=== PATIENT | male | born 1960 | race Two or more races ===

== ENCOUNTER 2021-07-12 14:07 | Emergency (ER) | payer MEDICAID, OTHER, SELFPAY ==
--- NOTE | ~2021-07-12 | XR_ITS ---
EXAMINATION: XR ANKLE, RIGHT CLINICAL INFORMATION: Injury. COMPARISON: None TECHNIQUE: AP, lateral, and mortise views of the right ankle. FINDINGS: Trimalleolar fracture of the ankle with dislocation. The talus is dislocated laterally. There is an oblique fracture through the lateral malleolus at the synchondrosis. Transverse fracture through the medial malleolus. Vertically oriented fracture through the posterior malleolus. Fracture fragments are slightly displaced. XR/XR ankle RT min 3V IMPRESSION: Trimalleolar fracture of ankle with lateral dislocation of talus.
--- NOTE | 2021-07-12 14:11 | ED_ITS ---
HPI - Fall General Chief Complaint: Extremity Injury, Lower Stated Complaint: FALL DOWN 1 STAIR, ANKLE PAIN Time Seen by Provider: 07/12/21 14:11 Source: patient and EMS Mode of arrival: EMS Limitations: no limitations History of Present Illness HPI Narrative: 61 y/o male with history of HTN, obesity presents to the ER with right ankle pain and swelling after he missed 2 steps when walking down some stairs prior to arrival. He states his ankle went inward and he saw his foot go 90 degrees outward. He is certain he broke his foot. His pain is 5/10 and is located on both the medial and lateral aspects of the ankle. He can't move his foot because of the pain. Unable to ambulate. EMS was called and he was brought to the ER for further evaluation. MD complaint: fall Onset (ago): minute(s) Fall from: standing Fall witnessed: no Place fall occurred: home Loss of consciousness: none Prolonged down time: no Symptoms prior to fall: none Context: tripped/slipped Location of injury - extremities: right: ankle Severity: moderate Severity scale (1-10): 5 Quality: sharp and aching Associated symptoms (after fall): unable to walk Related Data Previous Rx's Medication Instructions Recorded ibuprofen 600 mg tablet 600 mg PO Q8H PRN #20 tab 07/12/21 oxycodone 5 mg tablet 5 mg PO Q6H PRN #10 tab 07/12/21 Allergies Allergy/AdvReac Type Severity Reaction Status Date / Time No Known Allergies Allergy Verified 07/12/21 14:22 Review of Systems Review of Systems: Constitutional: No Fever, No Chills ENT/Mouth: No sore throat, No Rhinorrhea Cardiovascular: No Chest Pain, No SOB, No Orthopnea, No Edema Respiratory: No Cough, No Sputum, No Wheezing, No dyspnea Gastrointestinal: No Nausea, No Vomiting, No Diarrhea, No abdominal Pain Genitourinary: No Dysuria, No Urinary Frequency, No Hematuria Musculoskeletal:+ joint pain, No Myalgias Skin: No Skin Lesions, No rash Neuro: No Weakness, No Numbness, No Dizziness, No Headache Psych: No Anxiety/Panic, No Depression Heme/Lymph: No Bruising, No Lymphadenopathy PMFSH Past Medical History Medical History (Updated 07/12/21 @ 16:28 by CHARISSE Garcia) Asthma HTN (hypertension) Kidney stone Post-nasal drip Social History Social History Advance Directives: No Advance Directives Information Provided: No Physical Exam Vital Signs: Vital Signs: Last Vital Signs Temp 98.2 F 07/12/21 14:12 Pulse 85 07/12/21 14:12 Resp 16 07/12/21 14:12 BP 136/87 07/12/21 14:12 Pulse Ox 96 07/12/21 14:12 BMI result Body Mass Index 35.3 Appearance: Alert. Oriented X3. No acute distress. HEENT: normal inspection CVS: Normal heart rate and rhythm. Pulses normal. Respiratory: No respiratory distress. Skin: Skin warm and dry. Normal skin color. Normal skin turgor. No rashes. Extremities: significant soft tissue swelling of the medial and lateral aspects of the right ankle. no ecchymosis. tenderness throughout with limited ROM due to pain. cap refill <3 sec, 2+ DP pulses. normal right ankel and right hip. Neuro: Oriented X 3. No motor deficit. No sensory deficit. gait not tested due to pain Course Course Course Narrative: 7-year-old male presents the ER with right ankle pain status post fall down 2 stairs just prior to arrival. He has significant soft tissue swelling without any skin tenting. Suspect acute fracture. X-rays pending. Reevaluation(s) Reevaluation #1: X-ray showing a trimalleolar fracture. Dr. Klein was consulted who is recommending splinting with a gentle don technique - knee in flexion, external rotation of the lower leg and simultaneous foot abduction and supination. This was performed successfully with patient sitting at the edge of the bed. He tolerated well. He states the ankle feels ?normal. ?. His pain is a 4/10 after dose of oxycodone. He was given crutches and crutch training. He was instructed nonweightbearing status, and he needs to be by orthopedics next week. He is declining need for acute rehab. Stable for discharge home. Consultations Consultation #1: Dr. Klein - Orthopedics Procedures Orthopedic Splinting/Casting Injury #1: Side: right Lower Extremity Injury Location: ankle Lower Extremity Immobilizer: posterior splint and stirrup splint Other Orthopedic Equipment: crutches Discharge Plan Discharge Clinical Impression: Closed trimalleolar fracture of ankle Patient Disposition: Home, Self-Care Instructions: Ankle Fracture (DC) Additional Instructions: Your x-ray today showed you broke both major ankle bones. A splint was placed for temporary immobilization until the swelling goes down. Elevate your foot whenever possible. You cannot bear any weight on your right foot. You must follow up with the equipment application specialist early next week. Name and number below - call tomorrow to arrange an appointment. Take the prescribed medications as needed for pain. Also recommend Tylenol 1,000 mg every 6 hours. Prescriptions: New oxycodone 5 mg tablet 5 mg PO Q6H PRN (Reason: pain) Qty: 10 0RF ibuprofen 600 mg tablet 600 mg PO Q8H PRN (Reason: pain) Qty: 20 0RF Referrals: Tee Klein MD [Physician] - 2 days (trimalleolar ankle fracture)
[2021-07-12 14:12] VITALS: BP 136/87; PULSE 85; RESP 16; TEMP 36.8; O2SAT 96; BMI 35.3
[2021-07-12 14:19] VITALS: BP 140/74; PULSE 96; O2SAT 96
[2021-07-12] MEDS: oxyCODONE HCl Immed Release 5 MG TABLET PO (14:33)
== END 2021-07-12 18:12 | disposition home or self-care (01) ==
PROVIDERS: Emergency Provider Emergency Medicine
DX: S82.851A Displaced trimalleolar fracture of right lower leg, initial encounter for closed fracture (principal); W10.8XXA Fall (on) (from) other stairs and steps, initial encounter; Y93.9 Activity, unspecified; Y92.9 Unspecified place or not applicable; Y99.9 Unspecified external cause status
CPT/HCPCS: 73610; 99283; 99284

== ENCOUNTER → 2021-07-16 14:41 | Outpatient (BNVA) | payer MEDICAID, OTHER, SELFPAY | PROVIDERS: Visit Provider Physician Assistant | DX: S82.851A Displaced trimalleolar fracture of right lower leg, initial encounter for closed fracture (principal) | CPT/HCPCS: 99202 ==

== ENCOUNTER 2021-07-18 10:00 | Day surgery (SDC) | payer MEDICAID, OTHER, SELFPAY ==
--- NOTE | 2021-07-17 09:01 | P.CONAN_ITS ---
Documented by User: Veronica Meza NP 07/17/21 09:01 HPI - Anesthesia Eval Consult details Narrative: 61yo M for Right Ankle Fracture ORIF FOR[facility]LY [facility], 1928–1983 Past Medical History Medical History Asthma HTN (hypertension) Kidney stone Post-nasal drip Social History Social History Patient Tobacco Use Status: Former Tobacco user Quit Date: 10 YEARS AGO Use of substances other than those prescribed or required for medical reasons: No Are you DNR?: No Advance Directives: No Advance Directives Information Provided: Yes Recently lost weight without trying: No Meds Allergies Allergy/AdvReac Type Severity Reaction Status Date / Time No Known Allergies Allergy Verified 07/16/21 14:46 Home Medications Medication Instructions Recorded Confirmed Last Taken Type amlodipine 5 mg tablet 5 mg PO DAILY 07/16/21 07/16/21 Unknown History cetirizine 10 mg tablet (All Day 10 mg PO DAILY PRN 07/16/21 07/16/21 Unknown History Allergy (cetirizine)) tamsulosin 0.4 mg capsule (Flomax) 0.4 mg PO DAILY 07/16/21 07/16/21 07/17/21 History Exam Exam Date and Time: July 17, [id number] Assessment and Plan Assessment Anesthesia Assessment: Chart Reviewed Documented by User: Puma Aguirre MD 07/18/21 17:01 [facility], [facility] Past Medical History Medical History Asthma HTN (hypertension) Kidney stone Post-nasal drip Functional capacity: independent ambulation Family History Family history of problems with anesthesia: No Surgical History History of Problems with Anesthesia: No Social History Social History Patient Tobacco Use Status: Former Tobacco user Quit Date: 10 YEARS AGO Use of substances other than those prescribed or required for medical reasons: No Are you DNR?: No Advance Directives: No Advance Directives Information Provided: Yes Recently lost weight without trying: No Meds Allergies Allergy/AdvReac Type Severity Reaction Status Date / Time No Known Allergies Allergy Verified 07/16/21 14:46 Home Medications Medication Instructions Recorded Confirmed Last Taken Type amlodipine 5 mg tablet 5 mg PO DAILY 07/16/21 07/16/21 Unknown History cetirizine 10 mg tablet (All Day 10 mg PO DAILY PRN 07/16/21 07/16/21 Unknown History Allergy (cetirizine)) tamsulosin 0.4 mg capsule (Flomax) 0.4 mg PO DAILY 07/16/21 07/16/21 07/17/21 History Exam Airway Mallampati Class: III TM Dist: >3cm Neck ROM: Full Denture: Upper Loose/Missing/Broken Teeth: Yes Heart: rrr Lungs: bl breath sounds Assessment and Plan Assessment Anesthesia Assessment: Anesthesia Plan Discussed Final Anesthetic Review Family History of Problems with Anesthesia: No History of Problems with Anesthesia: No NPO: Yes ASA Class: III Final Preanesthetic Review: Meds/Allgs Chart Reviewed, Consent Obtained/Reviewed and Anes Risks/Benef Reviewed Patient Risk: Intermediate Procedure Risk: Intermediate Anesthetic Plan Anesthetic Plan: GA and Regional Block Disposition: Standard PACU
[2021-07-18] VITALS (11 sets, daily range): BP systolic 110–154; BP diastolic 68–88; PULSE 77–97; RESP 12–18; TEMP 36.1–36.8; O2SAT 92–99; BMI 35.2
--- NOTE | ~2021-07-18 | FL_ITS ---
EXAMINATION: Intraoperative fluoroscopy CLINICAL INFORMATION: Right ankle fracture COMPARISON: Right ankle x-rays 07/12/2021 TECHNIQUE: Intraoperative fluoroscopy was provided for use by Dr. Klein. A total of 3 images were saved to PACS. A radiologist was not present during imaging. Today's dictation is only for administrative purposes to document intraoperative fluoroscopic usage. TOTAL FLUOROSCOPIC TIME: 0.3 minutes FL/FL guidance in OR FINDINGS~\^^ Intraoperative fluoroscopy provided for use by Dr. Klein. Please see operative note for detailed findings.
[2021-07-18] MEDS: Lactated Ringers 1,000 ML 100 ML IVCONT (11:06)
--- NOTE | 2021-07-18 11:58 | MHC.SHP ---
Pre-Procedural Eval Section A Date of Service: 07/18/21 The patient is an INPATIENT: No Changes since office visit: Yes Patient answered all questions; No Cold of Flu in the past 2 weeks, No New Medical Problems and No Changes in Medication The History & Physical has been completed within 30 days and I have reviewed it.: Yes Section B Chief Complaint: Displaced bimalleolar fracture of right lower leg, Allergies: Allergies Allergy/AdvReac Type Severity Reaction Status Date / Time No Known Allergies Allergy Verified 07/16/21 14:46 Plan I have reviewed the history and physical and performed a pertinent physical examination on my patient. No changes have occurred unless specified.
--- NOTE | 2021-07-18 13:23 | PM.OP ---
Brief Operative Note Date of Service: 07/18/21 Pre-op diagnosis: right bimalleolar ankle fracture Post-op diagnosis: same Procedure: ORIF right bimall Implants: [place] lateral locking plate and 2 medial 4.0 partially threaded cancellous screws Surgeon: Tee Klein MD Anesthesia: GETA and regional Was an Sponsorship Manager used for this Procedure?: Yes Sponsorship Manager: Vianney Sanches Estimated blood loss (mL): 25 IV fluids (mL): 1,000 Pathology: none sent Condition: stable Disposition: PACU
--- NOTE | 2021-07-18 13:28 | W.PM.OPN ---
Operative Note Operative Note Date of Service: 07/18/21 Narrative: Pre-op diagnosis: right bimalleolar ankle fracture Post-op diagnosis: same Procedure: ORIF right bimall Implants: [place] lateral locking plate and 2 medial 4.0 partially threaded cancellous screws Surgeon: Tee Klein MD Anesthesia: GETA and regional Was an Integrated Campaign Manager used for this Procedure?: Yes Integrated Campaign Manager: Vianney Sanches Estimated blood loss (mL): 25 IV fluids (mL): 1,000 Pathology: none sent Condition: stable Disposition: PACU Procedure in detail: Patient was brought to the operating room and placed supine on the operative table. All bony prominences were well padded and a time-out was called to identify proper site proper procedure proper surgeon. IV antibiotics per weight were administered. I began by exsanguinating limb is slightly tourniquet to 300 mm Hg. I then made a standard posterolateral incision over the fibula. Full-thickness flaps were taken down to the fibular shaft and distal fibula. The fracture was identified and cleaned with a combination of curette, rongeur and irrigation. A lobster claw was used to provisionally reduce the fracture and a lag screw was placed from A-P using standard AO techniqu. A 6 hole distal fibular locking plate was then applied using standard AO technique. Biplanar fluoroscopy was used to confirm hardware position and fracture reduction. Once I was satisfied that both of these were acceptable I irrigated copiously and turned my attention to the medial side. The transverse medial malleolar fracture was identified after skin incision. Full-thickness skin flaps were developed and, With a sharp tenaculum, the fracture was reduced. 2 threaded K-wires were then placed from distal to proximal and perpendicular to the fracture. Biplanar fluoroscopy was used to confirm positioning and then they were overdrilled and 2 40 mm 4.0 partially-threaded cannulated cancellous screws were placed across the fracture. I was satisfied with the position and the fracture reduction based on biplanar fluoroscopy. This syndesmosis was tested using external rotation test and was found to be stable. Therefore all instrumentation was removed and copious irrigation was performed. Absorbable suture and stacie were used for closure and the patient was placed into sterile dressings and a well-padded posterior splint. Tourniquet was let down and the patient was extubated brought to recovery room in stable condition there were no known complications.
[2021-07-18] MEDS: HYDROmorphone HCl 0.5 MG/0.5 ML SYRINGE 0.25 MG IVPUSH ×3 (13:39→14:18)
[2021-07-18] MEDS: HYDROmorphone HCl 0.5 MG/0.5 ML SYRINGE IVPUSH (13:55)
[2021-07-18] MEDS: oxyCODONE HCl Immed Release 5 MG TABLET PO (14:02)
== END 2021-07-18 16:55 | disposition home or self-care (01) ==
LOC: HO.SSS 10:01
PROVIDERS: Visit Provider Orthopaedic Surgery
PROC: (CPT 27814; principal; 2021-07-18 12:20)
DX: S82.841A Displaced bimalleolar fracture of right lower leg, initial encounter for closed fracture (principal); W10.8XXA Fall (on) (from) other stairs and steps, initial encounter; Y93.01 Activity, walking, marching and hiking; Y92.9 Unspecified place or not applicable; Y99.8 Other external cause status; I10 Essential (primary) hypertension; J45.909 Unspecified asthma, uncomplicated; Z79.899 Other long term (current) drug therapy; Z87.891 Personal history of nicotine dependence
CPT/HCPCS: 27814; C1713; J0131; J0690; J1100; J1170; J1200; J2250; J2405; J3010

== ENCOUNTER 2021-08-02 06:45 | Outpatient (REF) | payer MEDICAID, OTHER, SELFPAY ==
--- NOTE | ~2021-08-02 | XR_ITS ---
EXAMINATION: XR ANKLE, RIGHT CLINICAL INFORMATION: Right ankle pain. Right foot pain. COMPARISON: Radiographs of the right ankle done on 07/12/2021. TECHNIQUE: AP, lateral, and mortise views of the right ankle. FINDINGS: Postsurgical changes of ORIF is noted involving the distal right fibula including the lateral malleolus and also within the medial malleolus. The hardware is appear intact. The fracture lines. Visualized. The bony alignments are intact. Mild periarticular osteopenia is noted. Mild enthesopathy at the insertional site of the Achilles tendon to the calcaneus. Mild nonspecific soft tissue swelling is also noted around the right ankle, significantly decreased since prior study. XR/XR ankle RT min 3V IMPRESSION: Expected postsurgical changes are noted at the right ankle showing satisfactory bony alignment and intact hardware. No new abnormalities.
== END 2021-08-02 06:46 | disposition home or self-care (01) ==
LOC: HO.HOSX 06:45
PROVIDERS: Visit Provider Physician Assistant
DX: S82.853D Displaced trimalleolar fracture of unspecified lower leg, subsequent encounter for closed fracture with routine healing (principal)
CPT/HCPCS: 29405; 73610; 99212

== ENCOUNTER 2021-08-30 14:25 | Outpatient (REF) | payer MEDICAID, OTHER, SELFPAY ==
--- NOTE | ~2021-08-30 | XR_ITS ---
EXAMINATION: XR ANKLE, RIGHT CLINICAL INFORMATION: Pain. COMPARISON: Right ankle 08/02/2021 TECHNIQUE: AP, lateral, and mortise views of the right ankle. FINDINGS: Two malleolar screws through the medial malleolus and a lateral fibular plate and screws stabilizing medial malleolar and distal fibular fractures. The distal fibular fracture appears fused. There is a fracture line still visualized through the medial malleolus. The ankle mortise and subtalar joints are normal. There is moderate bimalleolar soft tissue swelling. The ankle mortise and subtalar joints are normal. Small calcaneal heel and retrocalcaneal enthesophytes are seen. XR/XR ankle RT min 3V IMPRESSION: Healed lateral fibular fracture with metallic plate and screws. Two malleolar screws through the medial malleolus with the fracture line still visualized. Bimalleolar moderate soft tissue swelling.
== END 2021-08-30 14:26 | disposition home or self-care (01) ==
LOC: HO.HOSX 14:25
PROVIDERS: Visit Provider Physician Assistant
DX: S82.831D Other fracture of upper and lower end of right fibula, subsequent encounter for closed fracture with routine healing (principal); X58.XXXD Exposure to other specified factors, subsequent encounter
CPT/HCPCS: 73610; 99212

== ENCOUNTER 2021-11-22 08:13 | Outpatient (REF) | payer MEDICAID, OTHER, SELFPAY ==
--- NOTE | ~2021-11-22 | XR_ITS ---
EXAMINATION: XR ANKLE, RIGHT CLINICAL INFORMATION: Follow-up fracture COMPARISON: Previous x-rays most recent August 2021 TECHNIQUE: AP, lateral, and mortise views of the right ankle. FINDINGS: There is orthopedic hardware with plate and screws in the distal fibula and 2 screws in the medial malleolus. Orthopedic hardware appears unchanged. The distal fibular fracture appears healed. Medial malleolar fracture appears unchanged with persistent visualization of transverse fracture line. The ankle mortise is normal. There is diffuse soft tissue swelling. There are small calcaneal spurs. XR/XR ankle RT min 3V IMPRESSION: ORIF of distal fibular shaft and medial malleolar fractures. Medial malleolar fracture line is still seen and appears unchanged.
== END 2021-11-22 08:14 | disposition home or self-care (01) ==
LOC: HO.HOSX 08:13
PROVIDERS: Visit Provider Physician Assistant
DX: M25.571 Pain in right ankle and joints of right foot (principal); Z96.661 Presence of right artificial ankle joint
CPT/HCPCS: 73610; 99212

== ENCOUNTER 2025-02-14 00:18 | Inpatient (IN) | payer MEDICAID, OTHER, SELFPAY ==
--- NOTE | 2025-02-14 | ECG_ITS ---
Test Reason : dizziness Blood Pressure : */* mmHG Vent. Rate : 96 BPM Atrial Rate : 96 BPM P-R Int : 196 ms QRS Dur : 96 ms QT Int : 360 ms P-R-T Axes : 39 -14 -11 degrees QTcB Int : 454 ms Normal sinus rhythm Nonspecific T wave abnormality Abnormal ECG No previous ECGs available Referred By: Generic ED Physician Electronically Signed By: SHREE LAINEZ MD
--- NOTE | ~2025-02-14 | CT_ITS ---
EXAMINATION: CT ANGIOGRAM HEAD AND NECK CLINICAL INFORMATION: Speech difficulty. COMPARISON: Noncontrast CT brain performed earlier today at 1:39 AM TECHNIQUE: Axial 3 mm thin and reformatted 8 mm thick sagittal and coronal and 3-D images of neck and brain were obtained following rapid IV administration of 100 mL Omnipaque 350. This CT examination was performed using dose optimization techniques as appropriate, variously including the following: *Automated exposure control *Adjustment of mA and/or kV according to patient size (this includes techniques or standardized protocols for targeted exams where dose is matched to indication/reason for exam; i.e. extremities or head) *Use of iterative reconstruction technique DLP: 717 mGy/cm. FINDINGS: NECK CTA: The thoracic arch is normal caliber. There is normal three-vessel branching of the aortic arch. The right brachiocephalic artery bifurcates normally into subclavian and common carotid artery. The right common carotid artery bifurcates normally into internal and external carotid artery. The internal right internal carotid artery is widely patent throughout its course in the neck extending intracranially. The left common carotid artery spaces origin and throughout its entire course up to bifurcation. There is a normal bifurcation into external and internal carotid artery. The internal carotid artery is widely patent throughout the course of the neck extending intracranially. Both external carotid arteries are widely patent as well. NONVASCULAR NECK: The thyroid lobes, bilateral parotid and submandibular glands are symmetrical and normal. No abnormal neck mass or lymphadenopathy seen. Central tracheal airway is widely patent. The lung apices are clear visualized oral cavity, pharynx and the neck soft tissues unremarkable. Visualized cervical spine is unremarkable. Wall polyp or retention cyst seen in left maxillary sinus The maxillofacial mandible bones are unremarkable. BRAIN CTA:Both internal carotid arteries are patent. The bifurcate normally into anterior and middle cerebral arteries which are bilaterally patent throughout their course. A small anterior cerebral arteries noted. No evidence of aneurysm or atherosclerotic narrowing seen. Posttreatment both vertebral arteries March the form basilar artery. The right vertebral artery appears dominant. The basilar artery and its branches are widely patent. No evidence of aneurysm or dissection. The major venous sinuses appear patent. NONVASCULAR BRAIN: There is no intra-axial or extra-axial axial enhancing mass, edema or midline shift. The tobar to white matter differentiation is maintained normal. There is no acute infarction in evolution. No abnormality seen in the posterior fossa. A small polyp or retention cyst seen in left maxillary sinus. Otherwise rest of the paranasal sinuses and mastoid air cells are well-aerated. There is normal symmetry of bilateral optic globes, optic nerves. The scalp soft tissues and visualized bones are grossly unremarkable. CT/CT angio head neck IMPRESSION: Unremarkable CTA head and neck. Electronically signed by: Gilbert Sherwood MD 02/14/2025 05:49 AM EDT RP
--- NOTE | ~2025-02-14 | CT_ITS ---
CLINICAL HISTORY: weakness CT head without contrast Comparison: None provided Findings: No intra-axial mass, midline shift, hydrocephalus, or acute hemorrhage. Mild atrophy-like change and white matter disease. The visualized paranasal sinuses and mastoid air cells are normal. The orbits are within normal limits. There is no acute fracture. IMPRESSION: 1. No acute intracranial findings. This document has been electronically signed by: Rozina Fraser MD on 02/14/2025 02:56:02
[2025-02-14 00:21] VITALS: BP 160/96; PULSE 100; O2SAT 95
[2025-02-14 00:27] VITALS: BP 172/93; PULSE 99; RESP 17; TEMP 36.7; O2SAT 98; BMI 35.9
--- OUTSIDE RECORDS SUMMARY | 2025-02-14 00:43 | XMS_ITS | Clinical Summary ---
Author Organization [facility] Address [address] [place] [address] Care Team Providers Care Cognos Consultant Name Role Phone Lucrecia Walsh PA-C Primary Care Provider Source Comments PLEASE NOTE, if this patient is a minor, it may be UNLAWFUL to discuss sensitive information that is contained in these records (such as FAMILY PLANNING, MENTAL HEALTH or SUBSTANCE ABUSE) with the minor patient's parent or other person without the patient's specific authorization.[facility] Allergies No known active allergies Medications triamcinolone (KENALOG) 0.1 % ointmentIndication s:Rash Apply topically 2 (two) times daily Up to 2 weeks 15 g 5 Active benzonatate (TESSALON) 200 mg capsuleIndications :Seasonal allergic rhinitis, unspecified trigger Take 1 Capsule by mouth 2 (two) times daily as needed for cough 60 Capsule 2 5 Active amLODIPine (NORVASC) 5 mg tabletIndications: Hypertension, unspecified type TAKE ONE TABLET BY MOUTH ONCE daily 90 Tablet 1 5 Active atorvastatin (LIPITOR) 20 mg tabletIndications: Mixed hyperlipidemia TAKE ONE TABLET BY MOUTH ONCE daily 90 Tablet 1 5 Active cetirizine (ZYRTEC) 10 mg tabletIndications: Seasonal allergic rhinitis due to other allergic trigger TAKE ONE TABLET BY MOUTH ONCE daily 90 Tablet 1 5 Active tamsulosin (FLOMAX) 0.4 mg 24 hr capsuleIndications :Benign prostatic hyperplasia with nocturia TAKE ONE CAPSULE BY MOUTH ONCE daily 90 Capsule 1 5 Active Active Problems Problem Noted Date Diagnosed Date Hypertension 08/13/2017 Hyperlipidemia 08/13/2017 Seasonal allergic rhinitis 08/13/2017 Subclinical hypothyroidism 08/13/2017 Encounters Date Type Department Care Team Description 01/11/2025 2:00 PM EDT Telemedicine Visit [address] [phone] Alicia Berry RN 12/01/2024 Results Follow-Up [address] [phone] Lucrecia Walsh PA-C 11/23/2024 2:00 PM EDT Telemedicine Visit [address] [phone] Alicia Berry RN from Last 3 Months Immunizations Immunization Administration Dates Next Due Flu, Preservative Free 01/15/2019,02/20/2018, PNEUMOCOCCAL CONJUGATE PCV 20 (Prevnar 20) 12/10 TDAP 07/19/2020 ZOSTER VACCINE, RECOMBINANT (SHINGRIX) ,07/19/2020 Social History Tobacco Use Types Packs/Day Years Used Date Smoking Tobacco: Never Smokeless Tobacco: Never Tobacco Cessation:Counseling Given: Yes Alcohol Use Standard Drinks/Week Comments No 0 (1 standard drink = 0.6 oz pur e alcohol) Social Connections Answer Date Recorded How often do you feel lonely or isolated from th ose around you? 1 07/26/2024 Financial Resource Strain Answer Date R ecorded Hard to pay for: Food 1 07/26/2024 Stress Answer Date Recorded Do you feel these kinds of stress these days? 1 07/26/2024 Physical Activity Answer Date Recorded Physical Activity 0 12/20/2018 Food Insecurity Answer Date Recorded Hard to pay for: Food 1 07/26/2024 Transportation Needs Answer Date Record ed Hard to pay for: Transportation 1 07/26/2024 Housing Stability Answer Date Recorded Think about the place you li ve. Do you have problems with any of the following? (Check all that apply) 2 07/26/2024 Safety and Environment Answer Date Sulaiman rded Safety 0 12/05/2021 Utilities Answer Date Recorded Hard to pay for: Utilities 1 07/26 Employment Answer Date Recorded Employment 0 12/20/2018 Sex and Gender Information Value Date Recorded Sex Assigned at Male 07/04/2017 2:12 PM PST Legal Sex Male 6:07 AM PST Gender Identity Male 07/04/2017 2:12 PM PST Sexual Orientation Straight 02/20/2018 6: 53 AM PDT Last Filed Vital Signs Vital Sign Reading Time Taken Comments Blood Pressure 126/86 12/09/2024 9:36 AM EDT Pulse 77 12/09/2024 9:36 AM EDT Temperature 36.7 C (98.1 F) 03/12/2022 4:16 PM EST Respiratory Rate 16 12/11/2023 3:01 PM EDT Oxygen Saturation 97% 12/11/2023 3:01 PM EDT Inhaled Oxygen Concentration - - Weight 121.6 kg (268 lb) 07/26/2024 11:09 AM EDT Height 188 cm (6' 2 ) 07/26/2024 11:09 AM EDT Body Mass Index 34.41 07/26/2024 11:09 AM EDT Plan of Treatment Upcoming Encounters Date Type Department Care Team (Late st Contact Info) Description 03/15/2025 2:00 PM EST Telemedicine Visit [facility] [address] [place] [phone] Alicia Berry, RN [address] [place] [address] Health Maintenance Due Date Last Done Comments CT Colonography 2006 Colonoscopy 2006 Colorectal Cancer Screening 2006 FIT/gFOBT 2006 Fecal DNA 2006 Flexible Sigmoidoscopy 2006 Annual Wellness (Adult): Ind icated (All Coverage) 12/10/2024 12/11/2023, 12/05/2021, 09/16/2017 [id number] ( season) 2024 Imm-Influenza (#1) 2024 01/15/2019, 1 , 09/16/2017 Anxiety Screening 07/26/2025 07/26/2024 Tobacco Screening 07/26/2025 07/26/2024 Lipid Screening 10/12/2025 10/12/2024, 11/26, 10/07/2022, Additional history exists TSH Monitoring 10/12/2025 10/12/2024, 11/26, 12/05/2021, Additional history exists Diabetes Screening 10/13/2027 10/12/2024, 0 12/11/2023, 10/07/2022, Additional history exists Imm-DTaP/Tdap/Td (2 - Td or Tdap) 07/19/2030 021 Imm-Zoster, Recombinant Completed 12/05/2021, 07/19 HIV Screening Completed 12/11/2023 Imm-Pneumococcal 50+ Completed 12/11/2023 Alcohol and Drug Screen Completed 07/27/19, 12/11/2023, 09/16/2022, Additional history exists Depression Annual Screen Completed 07/26/2024, 07/27 Hepatitis C Screening Completed 10/12/2024, 024 Procedures Procedure Name Priority Date/Time Associated Diagnosis Comments THYROID PANEL WITH TSH Routine 10/12/2024 2:41 PM EDT Subclinical hypothyroidism HEPATITIS C AB W/RFLX HCV RNA, QT, RT PCR Routine 10/12/2024 2:41 PM EDT COMPREHENSIVE METABOLIC PANEL Routine 10/12/2024 2:41 PM EDT Mixed hyperlipidemia Primary hypertension LIPID PANEL Routine 10/12/2024 2:41 PM EDT Mixed hyperlipidemia Primary hypertension HIV 1/2 AG & AB W/RFLX (4TH GEN) Routine 12/11/2023 3:59 PM EDT Screening examination for STI from Last 3 Months or Most Recently Relevant to Health Maintenance Results * HEPATITIS C AB W/RFLX HCV RNA, QT, RT PCR Routine (10/12/2024 2:41 PM EDT) HEPATITIS C ANTIBODY NON-REACT MEHNAZ NON-REACT MEHNAZ [facility] Comment: HCV antibody was non-reactive. There is no laboratory evidence of HCV infection. In most cases, no further action is required. However, if recent HCV exposure is suspected, a test for HCV RNA (test code 42637) is suggested. For additional information please refer to http://education.[employer]/faq/DMH08w9 (This link is being provided for informational/ educational purposes only.) 10/12/2024 2:41 PM EDT 10/12/2024 2:41 PM EDT Narrative [facility] - 10/16/2024 1:15 PM EDT FASTING:YES [employer] LauraPenemarie K Murphymegan Walsh PA-C LAB - BLOOD DRAW Edited Resu lt - Final Performing Organization Address City/[facility] Co de Phone Number [facility] [address] [address], [facility] [address] [address] * THYROID PANEL WITH TSH Routine (10/12/2024 2:41 PM EDT) TSH 1.77 0.40 - 4.50 mIU/L [facility] [place] T-3 UPTAKE 31 22 - 35 % Ditto [employer] [employer] T-4 (THYROXINE), TOTAL 8.9 4.9 - 10.5 mcg/dL [facility] [place] [employer] FREE T4 INDEX (T7) 2.8 1.4 - 3.8 [facility] Blood Blood / Unknown 10/12/2024 2 :41 PM EDT 10/12/2024 2:41 PM EDT Narrative [facility] - 10/16/2024 1:15 PM EDT FASTING:YES [employer] Genomicsmegan Walsh PA-C LAB - BLOOD DRAW Final Resul t Performing Organization Address [facility] Co de Phone Number [facility] [address] [address], [employer] [address] [address] * (ABNORMAL) LIPID PANEL Routine (10/12/2024 2:41 PM EDT) CHOLESTEROL, TOTAL 188 <200 mg/dL [facility] [place] HDL CHOLESTEROL 53 > OR = 40 mg/dL [facility] [place] TRIGLYCERIDES 103 <150 mg/dL [facility] [place] LDL-CHOLESTEROL 114(H) 99 mg/dL (calc) [facility] [place] Comment: Reference range: <100 Desirable range <100 mg/dL for primary prevention; <70 mg/dL for patients with CHD or diabetic patients with > or = 2 CHD risk factors. LDL-C is now calculated using the Kiah calculation, which is a validated novel method providing better accuracy than the Friedewald equation in the estimation of LDL-C. Ashutosh JEFFERSON et al. RAS. 2013;310(19): 1186-1129 (http://education.[employer]faq/MWM520) CHOL/HDLC RATIO 3.5 <5.0 (calc) [facility] [place] NON-HDL CHOLESTEROL 135(H) <130 mg/dL (calc) [facility] [place] Comment: For patients with diabetes plus 1 major ASCVD risk factor, treating to a non-HDL-C goal of <100 mg/dL (LDL-C of <70 mg/dL) is considered a therapeutic option. Blood Blood / Unknown 10/12/2024 2 :41 PM EDT 10/12/2024 2:41 PM EDT Narrative [facility] - 10/16/2024 1:15 PM EDT FASTING:YES us Lucrecia Walsh PA-C LAB - BLOOD DRAW Final Resul t [facility] [address] [place] [id number], [facility] [address] [place] [phone] * (ABNORMAL) COMPREHENSIVE METABOLIC PANEL Routine (10/12/2024 2:41 PM EDT) GLUCOSE 114(H) 65 - 99 mg/dL [facility] [place] Comment: Fasting reference interval For someone without known diabetes, a glucose value between 100 and 125 mg/dL is consistent with prediabetes and should be confirmed with a follow-up test. UREA NITROGEN (BUN) 19 7 - 25 mg/dL [facility] [place] CREATININE (blood) 1.20 0.70 - 1.35 mg/dL [facility] EGFR 68 > OR = 60 mL/min/1. 73m2 [facility] BUN/CREATININE RATIO SEE NOTE: [facility] Comment: Not Reported: BUN and Creatinine are within reference range. SODIUM 136 135 - 146 mmol/L [facility] POTASSIUM 4.1 3.5 - 5.3 mmol/L [facility] CHLORIDE 100 98 - 110 mmol/L [facility] CARBON DIOXIDE 28 20 - 32 mmol/L [facility] CALCIUM 9.7 8.6 - 10.3 mg/dL [facility] PROTEIN, TOTAL 7.4 6.1 - 8.1 g/dL [facility] ALBUMIN 4.5 3.6 - 5.1 g/dL [facility] GLOBULIN 2.9 1.9 - 3.7 g/dL (calc) [facility] ALBUMIN/GLOBULI N RATIO 1.6 1.0 - 2.5 (calc) [facility] BILIRUBIN, TOTAL 0.6 0.2 - 1.2 mg/dL [facility] ALKALINE PHOSPHATASE 62 35 - 144 U/L [facility] AST 16 10 - 35 U/L [facility] ALT 13 9 - 46 U/L [facility] Blood Blood / Unknown 10/12/2024 2 :41 PM EDT 10/12/2024 2:41 PM EDT Narrative [facility] - 10/16/2024 1:15 PM EDT FASTING:YES us Lucrecia Walsh PA-C LAB - BLOOD DRAW Edited Resu lt - Final [facility] [address] [address], [facility] [address] [address] * HIV 1/2 AG & AB W/RFLX (4TH GEN) (12/11/2023 3:59 PM EDT) HIV AG/AB, 4TH GEN NON-REAC TIVE NON-REAC TIVE [facility] Comment: HIV-1 antigen and HIV-1/HIV-2 antibodies were not detected. There is no laboratory evidence of HIV infection. PLEASE NOTE: This information has been disclosed to you from records whose confidentiality may be protected by state law. If your state requires such protection, then the state law prohibits you from making any further disclosure of the information without the specific written consent of the person to whom it pertains, or as otherwise permitted by law. A general authorization for the release of medical or other information is NOT sufficient for this purpose. For additional information please refer to http://education.[employer]/faq/ZQW361 (This link is being provided for informational/ educational purposes only.) The performance of this assay has not been clinically validated in patients less than 2 years old. Blood Blood / Unknown 12/11/2023 3 :59 PM EDT 12/11/2023 4:00 PM EDT Lucrecia Walsh PA-C LAB - BLOOD DRAW Final Resul t [facility] [address] [address], [facility] [address] [address] from Last 3 Months or Most Recently Relevant to Health Maintenance [place] DENTAL HEALTH SAFETY NET MEDICAID Care Teams Cognos Consultant Relationship Specialty Start Date End Date Lucrecia Walsh PA-C [address] [place] [address] PCP - General FAMILY MEDICINE[place] 06/05/20
--- OUTSIDE RECORDS SUMMARY | 2025-02-14 00:43 | XMS_ITS ---
Author Organization [facility] Address [address] [place] [address] Care Team Providers Care Health And Safety Inspector Name Role Phone Lucrecia Walsh PA-C Primary Care Provider [id number] [id number] Program Status:Enrolled (Active) Start date:10/12/2024 Enrollment date:11/03/2024 Case Team Name Relationship Phone Alicia Berry RN(Responsible Staff) [phone] Continued Care and Services Coordination
--- NOTE | 2025-02-14 00:51 | ED_ITS ---
[facility] - General Adult General Chief complaint: Extremity Problem Stated complaint: Shaky , Hot Flashes Time Seen by Provider: 02/14/25 00:39 Source: patient Mode of arrival: ambulatory Limitations: no limitations History of Present Illness ED Provider: Dr. Mariee [facility] narrative: 65-year-old male history of hypertension, BPH presented to ER today for evaluation of near syncopal episode , how flashes, shakiness. Prior to this patient was eating dinner. He stated that this happened around 11:30 PM today. He felt warm this down his legs. In his arms. He has difficulty standing up. Patient stated that he was worried that he may be having a stroke. Therefore he called 911. He did complain of some slowness in his speech. He stated that his symptom has resolved at this time. Related Data Home Medications ?Medication ?Instructions ?Recorded ?Confirmed amlodipine 5 mg tablet 5 mg PO DAILY 07/16/2107/16 cetirizine 10 mg tablet (All Day 10 mg PO DAILY PRN 07/16/21 Allergy (cetirizine)) tamsulosin 0.4 mg capsule (Flomax) 0.4 mg PO DAILY 07/16/21 Previous Rx's ?Medication ?Instructions ?Recorded ibuprofen 600 mg tablet 600 mg PO Q8H PRN pain #20 t abs 07/12/21 oxycodone 5 mg tablet 5 mg PO Q6H PRN pain #10 tab s 07/12/21 oxycodone 10 mg tablet,crush 10 mg PO Q12H pain 3 days #6 tabs 07/18/21 resistant,extended release 12 hr (OxyContin) oxycodone-acetaminophen 5 mg-325 1 tab PO Q6H PRN pain (scale score 07/31/21 mg tablet (Percocet) 4-6) 7 days #28 tabs Allergies Allergy/AdvReac Type Severity Reaction Status Date / Time No Known Allergies Allergy Verified 02/14/25 00:31 Review of Systems 2 Review of Systems: Pertinent review of systems as mentioned in [facility]. All other system otherwise negative. [facility] Past Medical History [facility] Narrative: Medical history as mentioned in [facility] Medical History Asthma HTN (hypertension) Kidney stone Post-nasal drip Social History Social History (Reviewed 11/22/21 @ 15:06 by Jenn Guevara COUNT INCLUDES THE [facility]) Patient Tobacco Use Status: Former Tobacco user Smoked in Last 30 Days: No Use of substances other than those prescribed or required for medical reasons: No Advance Directives: No Advance Directives Information Provided: No Do you have a plan to hurt others: No Plan Nutrition Risks: No Nutritional Risk Current occupational status: employed Current occupation: self employed, rt hand Physical Exam ED Exam Exam: General: Pleasant, no distress, interacting appropriately Head: Normacephalic, atraumatic ENT: oral mucosa moist, neck supple, no tracheal deviation Cardiovascular: regular rate, regular rhythm, no murmurs, rubbing, gallops Respiratory: CTAB, no wheeze, rales, rhonchi Gastrointestinal: Soft, non distended, non tender, non guarding Extremities: No limb pain or swelling, no calf tenderness Neurological: Awake and alert, no facial droop noted, see NIH score for full stroke evaluation. Skin: Warm and dry Psychiatric: Appropriate mood and thoughts Vital Signs: Vital Signs - 24 hr 02/14/25 00:27 02/14/25 01:41 02/14/25 02:33 Temperature 98.1 F 99.2 F 98.5 F Pulse Rate 99 88 95 Respiratory Rate 17 18 Blood Pressure 172/93 H 138/87 Pulse Oximetry 98 94 Oxygen Delivery Method Room Air Room Air BMI result Body Mass Index 35.9 NIH Stroke Scale Internal: Initial- Upon Arrival Level of Consciousness: Alert Level of Consciousness Questions: Answers both questions correctly Level of Consciousness Commands: Performs both tasks correctly Best Gaze: Normal Visual: No visual loss Facial Palsy: Normal Motor Arm (Right): No drift Motor Arm (Left): No drift Motor Leg (Right): No drift Motor Leg (Left): No drift Limb Ataxia: Absent Sensory: Normal Best Language: No aphasia Dysarthia: Normal Extinction and Inattention: No abnormality Score: 0 Medications Administered Discontinued Medications Generic Name Dose Route Start Last Admin Trade Name Freq PRN Reason Stop Dose Admin Famotidine 20 mg 02/14/25 01:22 02/14/25 01:48 Famotidine/Pf 20 Mg/2 Ml Vial IVPUSH 02/14/25 01:23 20 mg ONCE ONE Administration Sodium Chloride 1,000 mls @ 999 mls/hr 02/14/25 01:30 02/14/25 04:50 Ns IV 02/14/25 02:30 Infused .Q1H1M THOR Infusion Iohexol 75 ml 02/14/25 03:56 02/14/25 03:56 Iohexol 350 Mg/Ml 100 Ml Infus..Btl IV 02/14/25 03:57 75 ml ONCE ONE Administration Metoclopramide HCl 10 mg 02/14/25 02:22 02/14/25 02:28 Metoclopramide Hcl 10 Mg/2 Ml Vial IVPUSH 02/14/25 02:23 10 mg ONCE ONE Administration Ondansetron HCl 4 mg 02/14/25 01:22 02/14/25 01:48 Ondansetron Hcl 4 Mg/2 Ml Vial IVPUSH 02/14/25 01:23 4 mg ONCE ONE Administration Simethicone 160 mg 02/14/25 02:22 02/14/25 02:28 Simethicone 80 Mg Tab.Chew PO 02/14/25 02:23 160 mg ONCE ONE Administration Medical Decision Making Medical Decision Making MDM Narrative: This is a 65-year-old male presented hospital today for evaluation of dizziness, presyncopal episode. How flashes. Patient stated that he felt a palpitation then had near syncopal episode and slowness of speech. He was concerned about CVA. On my evaluation NIH of 0. I do not think patient has a TNK candidate due to low NIH score. He is back to his baseline. I was able to ambulate the patient without any issues. He is no longer dizzy. Obtain basic lab work for the patient I did add a lactic acid and blood cultures to the patient as well. To screen for possible sepsis. However this lower my differential as the patient is not tachycardic or febrile. Given patient's symptoms. We will plan to stroke activated the patient obtain a CT head CTA head and neck. Stroke lab workup has been ordered. My differential this could be a TIA versus a CVA. The patient will be signed out to oncoming provider. 5:45 AM 02/14/2025 (Dr. Viola Carrera, D.O.) CT read has been delayed due to an issue with Radiology. I have reviewed the CT imaging myself and do not see a large vessel occlusion. That being said, his symptoms are not consistent with large vessel occlusion at this time. He is currently symptom free and resting comfortably. Vital signs are normal, the rest of his workup is unremarkable aside from a slight ABRAHAM. Plan for admission to hospitalist for further care and evaluation. Admitted in guarded condition. Differential Diagnosis Differential Diagnoses: The differential diagnosis associated with the presentation includes CVA, TIA, cardiac arrhythmia, vasovagal syncope, cardiogenic syncope Lab Data MDM Lab Attestation statement: I reviewed the patient's lab results. 02/14/25 00:46 02/14/25 00:46 Labs: Lab Results 02/14/25 02/14/25 02/14/25 Range/Units 00:46 01:58 02:04 WBC 6.0 (4.8-10.8) X10*3/uL RBC 4.58 L (4.60-5.80) X10*6/uL Hgb 14.0 (14.0-18.0) g/dl Hct 40.5 L (42.0-52.0) % MCV 88.4 (80.0-98.0) fL MCH 30.6 (27.0-33.0) pg MCHC 34.6 (31.0-36.0) g/dl RDW 13.2 (11.0-16.0) % Plt Count 188 (160-400) X10*3/uL MPV 10.7 (9.4-12.4) fL Immature Gran % (Auto) 0.2 (0.0-0.4) % Neut % (Auto) 60.0 (45-73) % Lymph % (Auto) 33.0 (20-40) % [place] % (Auto) 5.1 (2-11) % Eos % (Auto) 1.2 (0-4) % Baso % (Auto) 0.5 (0-2) % Lymph # (Auto) 2.0 (1.2-4.9) X10*3/uL [place] # (Auto) 0.3 (0.1-1.2) X10*3/uL Eos # (Auto) 0.1 (0.0-0.4) X10*3/uL Baso # (Auto) 0.0 (0.0-0.2) X10*3/uL Abs Immat Gran (auto) 0.01 (0.00-0.03) X10*3/uL Absolute Neuts (auto) 3.6 (2.0-8.3) x10*3/uL Absolute Nucleated RBC 0.000 (0.0-0.012) X10*3/uL Nucleated RBC % (auto) 0.0 (0.0-0.2) /100WBC PT (10.9-12.4) SEC INR (0.9-1.1) APTT (26.7-34.1) SEC VBG pH 7.42 (7.32-7.43) VBG pCO2 36 mmHg VBG pO2 84 mmHg VBG HCO3 23 (22-26) mmol/L VBG O2 Saturation 97.0 % VBG Base Excess 0.1 mmol/L Sodium 137 (135-145) mmol/L Potassium 3.7 (3.3-5.1) mmol/L Chloride 105 (96-108) mmol/L Carbon Dioxide 21 L (22-29) mmol/L Anion Gap 15 (12-20) BUN 29 H (9-16) mg/dL Creatinine 1.46 H (0.5-1.4) mg/dL Estim Creat Clear Calc 72.3 Estimated GFR 49 POC Glucose (60-115) mg/dL Random Glucose 178 H (60-115) mg/dL Lactic Acid 1.2 (0.5-2.0) mmol/L Calcium 9.2 (8.4-10.2) mg/dL Magnesium 2.0 (1.6-2.6) mg/dL Total Bilirubin 0.5 (0.0-1.0) mg/dL AST 28 (5-37) U/L ALT 17 (0-40) U/L Alkaline Phosphatase 87 (39-117) U/L Troponin I High Sens < 2.7 (<3.5-35.0) ng/L NT-Pro-B Natriuret Pep 76.3 (<300) pg/mL Total Protein 7.2 (6.5-8.0) g/dL Albumin 4.3 (3.5-5.0) g/dL Triglycerides 117 (<150) mg/dL Cholesterol 167 (<200) mg/dL LDL Cholesterol, Calc 97 (<100) mg/dL HDL Cholesterol 47 (>40) mg/dL Lipase 21 (8-78) U/L Urine Color Urine Appearance Urine pH (5.0-9.0) Ur Specific [place] (1.005-1.025) Urine Protein (Neg-Trace) mg/dL Urine Glucose (UA) (Negative) mg/dL Urine Ketones (Negative) mg/dL Urine Blood (Negative) Urine Nitrite (Negative) Ur Leukocyte Esterase (Negative) Urine RBC (0-2) /HPF Urine WBC (0-5) /HPF Ur Squamous Epith Cells (0-2) /HPF Calcium Oxalate Crystal Urine Bacteria (None Seen) Hyaline Casts (0-2) /LPF Urine Opiates Screen (Not Detect) Ur Buprenorphine Scrn (Not Detect) ng/mL Ur Oxycodone Screen (Not Detect) ng/mL Urine Methadone Screen (Not Detect) ng/mL Urine Fentanyl Screen (Not Detect) Ur Barbiturates Screen (Not Detect) Ur Phencyclidine Scrn (Not Detect) Ur Amphetamines Screen (Not Detect) U Benzodiazepines Scrn (Not Detect) Urine Cocaine Screen (Not Detect) U Marijuana (THC) Screen (Not Detect) COVID-19 (SHEELA) (Negative) COVID-19 Clin Com Influenza Type A (DANETTE) (Negative) Influenza Type B (DANETTE) (Negative) Influenza A & B Note 02/14/25 02/14/25 02/14/25 Range/Units 02:37 02:45 03:16 WBC (4.8-10.8) X10*3/uL RBC (4.60-5.80) X10*6/uL Hgb (14.0-18.0) g/dl Hct (42.0-52.0) % MCV (80.0-98.0) fL MCH (27.0-33.0) pg MCHC (31.0-36.0) g/dl RDW (11.0-16.0) % Plt Count (160-400) X10*3/uL MPV (9.4-12.4) fL Immature Gran % (Auto) (0.0-0.4) % Neut % (Auto) (45-73) % Lymph % (Auto) (20-40) % [place] % (Auto) (2-11) % Eos % (Auto) (0-4) % Baso % (Auto) (0-2) % Lymph # (Auto) (1.2-4.9) X10*3/uL [place] # (Auto) (0.1-1.2) X10*3/uL Eos # (Auto) (0.0-0.4) X10*3/uL Baso # (Auto) (0.0-0.2) X10*3/uL Abs Immat Gran (auto) (0.00-0.03) X10*3/uL Absolute Neuts (auto) (2.0-8.3) x10*3/uL Absolute Nucleated RBC (0.0-0.012) X10*3/uL Nucleated RBC % (auto) (0.0-0.2) /100WBC PT 10.7 L (10.9-12.4) SEC INR 0.9 (0.9-1.1) APTT 31.6 (26.7-34.1) SEC VBG pH (7.32-7.43) VBG pCO2 mmHg VBG pO2 mmHg VBG HCO3 (22-26) mmol/L VBG O2 Saturation % VBG Base Excess mmol/L Sodium (135-145) mmol/L Potassium (3.3-5.1) mmol/L Chloride (96-108) mmol/L Carbon Dioxide (22-29) mmol/L Anion Gap (12-20) BUN (9-16) mg/dL Creatinine (0.5-1.4) mg/dL Estim Creat Clear Calc Estimated GFR POC Glucose 126 H (60-115) mg/dL Random Glucose (60-115) mg/dL Lactic Acid (0.5-2.0) mmol/L Calcium (8.4-10.2) mg/dL Magnesium (1.6-2.6) mg/dL Total Bilirubin (0.0-1.0) mg/dL AST (5-37) U/L ALT (0-40) U/L Alkaline Phosphatase (39-117) U/L Troponin I High Sens 2.8 (<3.5-35.0) ng/L NT-Pro-B Natriuret Pep (<300) pg/mL Total Protein (6.5-8.0) g/dL Albumin (3.5-5.0) g/dL Triglycerides (<150) mg/dL Cholesterol (<200) mg/dL LDL Cholesterol, Calc (<100) mg/dL HDL Cholesterol (>40) mg/dL Lipase (8-78) U/L Urine Color Yellow Urine Appearance Clear Urine pH 6.0 (5.0-9.0) Ur Specific [place] 1.020 (1.005-1.025) Urine Protein Trace (Neg-Trace) mg/dL Urine Glucose (UA) Negative (Negative) mg/dL Urine Ketones Negative (Negative) mg/dL Urine Blood Negative (Negative) Urine Nitrite Negative (Negative) Ur Leukocyte Esterase Moderate (2+) H (Negative) Urine RBC 0-2 (0-2) /HPF Urine WBC 11-20 H (0-5) /HPF Ur Squamous Epith Cells 0-2 (0-2) /HPF Calcium Oxalate Crystal Present Urine Bacteria None Seen (None Seen) Hyaline Casts 0-2 (0-2) /LPF Urine Opiates Screen Not Detected (Not Detect) Ur Buprenorphine Scrn Not Detected (Not Detect) ng/mL Ur Oxycodone Screen Not Detected (Not Detect) ng/mL Urine Methadone Screen Not Detected (Not Detect) ng/mL Urine Fentanyl Screen Not Detected (Not Detect) Ur Barbiturates Screen Not Detected (Not Detect) Ur Phencyclidine Scrn Not Detected (Not Detect) Ur Amphetamines Screen Not Detected (Not Detect) U Benzodiazepines Scrn Not Detected (Not Detect) Urine Cocaine Screen Not Detected (Not Detect) U Marijuana (THC) Screen POSITIVE H (Not Detect) COVID-19 (SHEELA) Negative (Negative) COVID-19 Clin Com See Note Influenza Type A (DANETTE) Negative (Negative) Influenza Type B (DANETTE) Negative (Negative) Influenza A & B Note See Note Independent Interpretation I performed an independent interpretation of an: CT Scan Discharge Plan Discharge Clinical Impression: Pre-syncope, Weakness, Spell of change in speech, Brain TIA, ABRAHAM (acute kidney injury) Patient Disposition: Admitted As Inpatient
[2025-02-14 00:52] LABS: MANUAL DIFF FLAG NO
[2025-02-14 00:57] LABS: Hematocrit 40.5 % (42.0-52.0); Hemoglobin 14.0 g/dl (14.0-18.0); Imm Gran Abs Auto 0.01 X10*3/uL (0.00-0.03); Imm Gran Pct Auto 0.2 % (0.0-0.4); Lymphocytes Absolute Auto 2.0 X10*3/uL (1.2-4.9); Mean Corpuscular HGB Conc 34.6 g/dl (31.0-36.0); Mean Corpuscular Hemoglobin 30.6 pg (27.0-33.0); Mean Corpuscular Volume 88.4 fL (80.0-98.0); NRBC Abs Auto 0.000 X10*3/uL (0.0-0.012); NRBC Pct Auto 0.0 /100WBC (0.0-0.2); Platelet Count 188 X10*3/uL (160-400); Red Blood Count 4.58 X10*6/uL (4.60-5.80); White Blood Count 6.0 X10*3/uL (4.8-10.8)
[2025-02-14 01:13] LABS: NT Pro B Type Natriuretic Pept 76.3 pg/mL (<300)
[2025-02-14 01:36] LABS: Alanine Aminotransferase 17 U/L (0-40); Albumin Level 4.3 g/dL (3.5-5.0); Anion Gap 15 (12-20); Aspartate Amino Transferase 28 U/L (5-37); Blood Urea Nitrogen 29 mg/dL (9-16); Calcium 9.2 mg/dL (8.4-10.2); Carbon Dioxide 21 mmol/L (22-29); Chloride 105 mmol/L (96-108); Creatinine Clr Calc Pharmacy 72.3; Estimated Glomerular Filt Rate 49; Lipase 21 U/L (8-78); Magnesium 2.0 mg/dL (1.6-2.6); Potassium 3.7 mmol/L (3.3-5.1); Sodium 137 mmol/L (135-145); Total Protein 7.2 g/dL (6.5-8.0); Troponin-I High Sensitivity < 2.7 ng/L (<3.5-35.0)
[2025-02-14 01:41] VITALS: PULSE 88; TEMP 37.3
--- NOTE | 2025-02-14 01:58 | PC.NURSE ---
pt biba from home, a&ox4, respirations even and unlabored. pt reports drinking a caffeine beverage and developing warmness x4 extremities. neuro assessment in tact. vss. MD Mariee at bedside, reports he would like pt in a room. pt moved to ed bed 17, rectal temp obtained, pt medicated per jun.
[2025-02-14 02:06] LABS: Venous Blood Gas Refer to POC result
--- NOTE | 2025-02-14 02:06 | PC.NURSE ---
initiated stroke protocol at 0200
[2025-02-14 02:07] LABS: VBG HCO3 23 mmol/L (22-26); VBG O2 % Saturation 97.0 %
[2025-02-14 02:33] VITALS: BP 138/87; PULSE 95; RESP 18; TEMP 36.9; O2SAT 94
--- NOTE | 2025-02-14 02:34 | PC.NURSE ---
pt unable to lay flat for head chest CTA d/t gas/burping, pt brought back to room, medicated per JUN per MD order
[2025-02-14 02:40] LABS: Cholesterol 167 mg/dL (<200); HDL Cholesterol 47 mg/dL (>40); Triglycerides 117 mg/dL (<150)
[2025-02-14 02:49] LABS: INTERNATIONAL NORM RATIO 0.9 (0.9-1.1); Prothrombin Time 10.7 SEC (10.9-12.4)
[2025-02-14 02:50] LABS: Glucose, Whole Blood 126 mg/dL (60-115)
[2025-02-14 02:51] LABS: Partial Thromboplastin Time 31.6 SEC (26.7-34.1)
[2025-02-14 02:51] LABS: Alkaline Phosphatase 87 U/L (39-117)
[2025-02-14 02:54] LABS: Stroke Lab Use COMPLETE
--- NOTE | 2025-02-14 02:56 | ECG_ITS ---
Test Reason : dyspepsia Blood Pressure : */* mmHG Vent. Rate : 89 BPM Atrial Rate : 89 BPM P-R Int : 206 ms QRS Dur : 102 ms QT Int : 370 ms P-R-T Axes : 47 -7 11 degrees QTcB Int : 450 ms Normal sinus rhythm Nonspecific T wave abnormality Abnormal ECG When compared with ECG of 14-Feb-2025 00:57, No significant change was found Referred By: Viola Carrera Electronically Signed By: SHREE LAINEZ MD
[2025-02-14 02:59] LABS: COVID-19 Test Negative (Negative); IDNOW Serial# 152EDE1D; IDNOW Serial# 16C4AD1C; Influenza B2 Negative (Negative)
[2025-02-14 03:03] LABS: Troponin-I High Sensitivity 2.8 ng/L (<3.5-35.0)
--- NOTE | 2025-02-14 03:07 | PC.NURSE ---
repeat EKG ordered for excessive burping
--- NOTE | 2025-02-14 03:13 | PC.NURSE ---
pt ambulated to the bathroom with steady gait, okayed to walk. pt did not want to use urinal at bedside. UA/BECERRA collected
[2025-02-14 03:23] LABS: Appearance Urine Clear; Glucose Urine UA Negative (Negative); PH 6.0 (5.0-9.0); Specific Gravity - Urine 1.020 (1.005-1.025); UMIC TRIGGER UACC YES
--- NOTE | 2025-02-14 03:24 | PC.NURSE ---
pt reports the burping has lessened, would like to try CTA in 15 minutes
[2025-02-14 03:37] LABS: UACC Culture Trigger YES
[2025-02-14 03:39] LABS: Cannabinoid Screen Urine POSITIVE (Not Detect)
[2025-02-14] MEDS: iohexoL 350 MG/ML 100 ML INFUS..BTL 75 ML IV (03:56)
--- NOTE | 2025-02-14 04:07 | PC.NURSE ---
pt able to tolerate CTA
--- NOTE | 2025-02-14 05:21 | P.HPHOSP_ITS ---
History of Present Illness Date of Service: 02/14/25 Attending physician on admission: Whitney Andres Chief Complaint: Panic attack Richie Watts is a 65 years old man with past medical history significant for hyperlipidemia, nephrolithiasis and hypertension presents to the emergency department complaining of panic attack-like episode that started last night. He said that he felt a heat inside his chest associated with palpitations and all extremities numbness and tingling. He denied chest pain or shortness on breath. No facial droop was reported. He also denied any headache or acute visual disturbances. He was unable to express himself when this episode happened. He mentioned that he drank 2 cans of yerba mate and the take 10 g of creatine daily. He did not report any nausea, vomiting or diarrhea. He denied use of diuretics. He denied history of stroke, ME and CKD. In the ED, he was found to have stable vital signs. Blood workup showed no leukocytosis. Hemoglobin is 14 and platelets 188. Troponin flat x2. INR is normal. PH is 7.42, pCO2 86 and HC03 23. There are no significant electrolyte imbalances. Glucose was 178. There is no lactic acidosis. LFTs are normal. BUN 29 and creatinine 1.46. Urine showed 2+ leukocyte steroids and WBC 11-20 and no bacteria; calcium oxalate crystals present. Toxicology is positive for marijuana. COVID-19 and influenza testing is negative. Head CT scan without contrast showed no acute intracranial findings. Head CTA is still pending. ECG showed NSR, heart rate 96 bpm and nonspecific T-wave abnormalities. ED tx: NS 1 L bolus, Zofran 4 mg IV, Pepcid 20 mg IV, Reglan 10 mg IV, simethiconel is 160 mg p.o. Review of Systems 2 Review of Systems: All 12 systems were reviewed and normal except as noted in HPI. [facility] Medical History Asthma HTN (hypertension) Kidney stone Post-nasal drip Social History Patient Tobacco Use Status: Former Tobacco user Current occupational status: employed Current occupation: self employed, rt hand Meds Allergies Allergy/AdvReac Type Severity Reaction Status Date / Time No Known Allergies Allergy Verified 02/14/25 00:31 Active Medications: Current Medications Acetaminophen (Acetaminophen 325 Mg Tablet) 650 mg PO Q6H PRN PRN Reason: Pain, Mild 1-3,fever,headache Calcium Carbonate (Calcium Carbonate 750 Mg Tab.Chew) 750 mg PO Q4H PRN PRN Reason: Heartburn Enoxaparin Sodium (Enoxaparin Sodium 40 Mg/0.4 Ml Syringe) 40 mg SUBCUT Q24H THOR Magnesium Hydroxide (Milk Of Magnesia 30 Ml Oral.Susp) 30 ml PO DAILY PRN PRN Reason: Constipation Melatonin (Melatonin 3 Mg Tablet) 6 mg PO BEDTIME PRN PRN Reason: Insomnia Sodium Chloride (0.9 % Sodium Chloride Flush 3 Ml Syringe) 3 ml IVFLUSH QSHIFT THOR Home Medications ?Medication ?Instructions ?Recorded ?Confirmed ?Last Taken ?Type amlodipine 5 mg tablet 5 mg PO DAILY 07/16/2107/16 Unknown History cetirizine 10 mg tablet (All Day 10 mg PO DAILY PRN 07/16/21 Unknown History Allergy (cetirizine)) tamsulosin 0.4 mg capsule (Flomax) 0.4 mg PO DAILY 07/16/21 07/17/21 History Physical Exam 2 Vital Signs and Narrative: Vital Signs: Last Vital Signs Temp 98.5 F 02/14/25 02:33 Pulse 95 02/14/25 02:33 Resp 18 02/14/25 02:33 BP 138/87 02/14/25 02:33 Pulse Ox 94 02/14/25 02:33 O2 Del Method Room Air 02/14/25 02:33 BMI result Body Mass Index 35.9 General: Alert, oriented, in no acute distress. Cooperative. Afebrile. Obese HEENT: Head normocephalic, atraumatic. PER, EOMI. Sclerae anicteric, conjunctiva clear. Oropharynx without erythema or exudate. Mucous membranes moist. Neck: Suppleor JVD. Heart: RRR, no murmurs, rubs or gallops. Lungs: Clear to auscultation bilaterally. No wheezes, rales, or rhonchi. Normal respiratory effort. Abdomen: Non tenderness. Extremities: Right ankle: Edema (chronic). No pitting edema to the lower extremities. Musculoskeletal: Full range of motion. No joint swelling, deformity, or tenderness. Normal muscle tone and strength. Skin: Warm/Dry. No pallor. No jaundice. Neurologic: Alert & oriented x4. Moving all extremities spontaneously. Normal speech. Psychological: Normal mood and affect. Thought process coherent. Results Labs 02/14/25 00:46 02/14/25 00:46 Labs: Laboratory Results - last 24 hr 02/14/25 02/14/25 02/14/25 00:46 01:58 02:04 MCV 88.4 MCH 30.6 MCHC 34.6 RDW 13.2 Plt Count 188 MPV 10.7 Immature Gran % (Auto) 0.2 Neut % (Auto) 60.0 Lymph % (Auto) 33.0 [place] % (Auto) 5.1 Eos % (Auto) 1.2 Baso % (Auto) 0.5 Lymph # (Auto) 2.0 [place] # (Auto) 0.3 Eos # (Auto) 0.1 Baso # (Auto) 0.0 Abs Immat Gran (auto) 0.01 Absolute Neuts (auto) 3.6 Absolute Nucleated RBC 0.000 Nucleated RBC % (auto) 0.0 PT INR APTT VBG pH 7.42 VBG pCO2 36 VBG pO2 84 VBG HCO3 23 VBG O2 Saturation 97.0 VBG Base Excess 0.1 Anion Gap 15 Estim Creat Clear Calc 72.3 Estimated GFR 49 POC Glucose Random Glucose 178 H Lactic Acid 1.2 Calcium 9.2 Magnesium 2.0 Total Bilirubin 0.5 AST 28 ALT 17 Alkaline Phosphatase 87 Troponin I High Sens < 2.7 NT-Pro-B Natriuret Pep 76.3 Total Protein 7.2 Albumin 4.3 Triglycerides 117 Cholesterol 167 LDL Cholesterol, Calc 97 HDL Cholesterol 47 Lipase 21 Urine Color Urine Appearance Urine pH Ur Specific [place] Urine Protein Urine Glucose (UA) Urine Ketones Urine Blood Urine Nitrite Ur Leukocyte Esterase Urine RBC Urine WBC Ur Squamous Epith Cells Calcium Oxalate Crystal Urine Bacteria Hyaline Casts Urine Opiates Screen Ur Buprenorphine Scrn Ur Oxycodone Screen Urine Methadone Screen Urine Fentanyl Screen Ur Barbiturates Screen Ur Phencyclidine Scrn Ur Amphetamines Screen U Benzodiazepines Scrn Urine Cocaine Screen U Marijuana (THC) Screen COVID-19 (SHEELA) COVID-19 Clin Com Influenza Type A (DANETTE) Influenza Type B (DANETTE) Influenza A & B Note 02/14/25 02/14/25 02/14/25 02:37 02:45 03:16 MCV MCH MCHC RDW Plt Count MPV Immature Gran % (Auto) Neut % (Auto) Lymph % (Auto) [place] % (Auto) Eos % (Auto) Baso % (Auto) Lymph # (Auto) [place] # (Auto) Eos # (Auto) Baso # (Auto) Abs Immat Gran (auto) Absolute Neuts (auto) Absolute Nucleated RBC Nucleated RBC % (auto) PT 10.7 L INR 0.9 APTT 31.6 VBG pH VBG pCO2 VBG pO2 VBG HCO3 VBG O2 Saturation VBG Base Excess Anion Gap Estim Creat Clear Calc Estimated GFR POC Glucose 126 H Random Glucose Lactic Acid Calcium Magnesium Total Bilirubin AST ALT Alkaline Phosphatase Troponin I High Sens 2.8 NT-Pro-B Natriuret Pep Total Protein Albumin Triglycerides Cholesterol LDL Cholesterol, Calc HDL Cholesterol Lipase Urine Color Yellow Urine Appearance Clear Urine pH 6.0 Ur Specific [place] 1.020 Urine Protein Trace Urine Glucose (UA) Negative Urine Ketones Negative Urine Blood Negative Urine Nitrite Negative Ur Leukocyte Esterase Moderate (2+) H Urine RBC 0-2 Urine WBC 11-20 H Ur Squamous Epith Cells 0-2 Calcium Oxalate Crystal Present Urine Bacteria None Seen Hyaline Casts 0-2 Urine Opiates Screen Not Detected Ur Buprenorphine Scrn Not Detected Ur Oxycodone Screen Not Detected Urine Methadone Screen Not Detected Urine Fentanyl Screen Not Detected Ur Barbiturates Screen Not Detected Ur Phencyclidine Scrn Not Detected Ur Amphetamines Screen Not Detected U Benzodiazepines Scrn Not Detected Urine Cocaine Screen Not Detected U Marijuana (THC) Screen POSITIVE H COVID-19 (SHEELA) Negative COVID-19 Clin Com See Note Influenza Type A (DANETTE) Negative Influenza Type B (DANETTE) Negative Influenza A & B Note See Note Assessment and Plan (1) ABRAHAM (acute kidney injury): Status: Acute (2) Palpitations: Status: Acute Plan Richie Watts is a 65 y/o man who presents with: Acute kidney injury, cause unclear. Received IV fluids. Recheck BUN and creatinine. Obtain urine creatinine, urine sodium and total CK Check renal ultrasound. Avoid nephrotoxic agents such as NSAIDs/ibuprofen. Palpitations; panic-like episode, all extremities tingling sensation; symptoms resolved. No obvious stroke-like symptoms reported. Head CTA ordered by ED - results are still pending. Drank 2 cans of Yerba Mate that contains caffeine. Recheck troponin and TSH. Obtain TTE. Hyperlipidemia. Continue statin. Essential hypertension. Continue amlodipine. Code status: Full DVT prophylaxis: Lovenox Patient will need hospitalization for at least 2 midnights for ABRAHAM treatment with IV fluids and further investigation. This documentation was generated using dictation software; minor spreading or development chemist errors may be present. Quality Stroke Does the patient have a stroke diagnosis?: No VTE Prior VTE?: No VTE Risk Level:: Medical - moderate - high VTE Device Contraindication: Treatment Not Indicated VTE Drug Contraindication: N/A - Med Ordered
[2025-02-14 05:27] VITALS: BP 137/88; PULSE 73; RESP 14; TEMP 36.4; O2SAT 97
--- NOTE | 2025-02-14 05:36 | PC.NURSE ---
stroke/tia education done, pamphlet given.
--- NOTE | 2025-02-14 05:59 | HO.NURTONUR ---
pt BIBA from home c/o hot flash, extremity tingling. felt like it was a panic attack or stroke. had a caffeinated drink prior to event. all neuros intact, sx have resolved. stroke protocol initiated in ED: head CT, head CTA- both negative. labs and vitals stable. ADMIT: ABRAHAM, palpitations. renal US and echo today, NSR on tele. pt A.O x4, calm and cooperative with care, ambulates independently. 20g IV LAC. only complaint in ED was burping, medicated per JUN.
[2025-02-14 06:04] LABS: Anion Gap 10 (12-20); Blood Urea Nitrogen 22 mg/dL (9-16); Calcium 8.9 mg/dL (8.4-10.2); Carbon Dioxide 22 mmol/L (22-29); Chloride 108 mmol/L (96-108); Creatinine Clr Calc Pharmacy 93.5; Estimated Glomerular Filt Rate > 60; Potassium 4.2 mmol/L (3.3-5.1); Sodium 136 mmol/L (135-145)
[2025-02-14 06:12] LABS: Free T4 (Free Thyroxine) 1.22 ng/dL (0.71-1.85); Thyroid Stimulating Hormone 0.91 uIU/mL (0.32-4.0)
[2025-02-14 06:13] LABS: Troponin-I High Sensitivity < 2.7 ng/L (<3.5-35.0)
--- NOTE | 2025-02-14 06:34 | PC.NURSE ---
pt reporting he would like to leave now. scans/work up negative. doesnt need an MRI. pt spoke with his daughter and both think he should go home now. hospitalist made aware.
[2025-02-14 07:16] VITALS: BP 131/80; PULSE 64; RESP 18; TEMP 36.4; O2SAT 97
== END 2025-02-14 07:19 | disposition left against medical advice (07) | DRG 204 ==
LOC: HO.ED 02:18 → HO.EDOVER 05:27
PROVIDERS: Student in an Organized Health Care Education/Training Program; Admitting Provider Internal Medicine; Emergency Provider Emergency Medicine; PCP Dentist General Practice; Visit Provider Internal Medicine
DX: R55 Syncope and collapse (principal); N17.9 Acute kidney failure, unspecified; E78.5 Hyperlipidemia, unspecified; I10 Essential (primary) hypertension; N40.0 Benign prostatic hyperplasia without lower urinary tract symptoms; R00.2 Palpitations; Z20.822 Contact with and (suspected) exposure to COVID-19; Z79.899 Other long term (current) drug therapy
CPT/HCPCS: 36415; 70450; 70496; 70498; 80048; 80053; 80061; 80307; 81001; 82550; 82570; 82803; 82947; 83605; 83690; 83735; 83880; 84300; 84439; 84443; 84484; 85025; 85610; 85730; 87040; 87086; 87502; 87635; 93005; 99285; J1308; J2405; J2765; Q9967

== ENCOUNTER → 2025-02-14 00:57 | Outpatient (BNV) | payer MEDICAID, SELFPAY | PROVIDERS: Admitting Provider Internal Medicine; Emergency Provider Emergency Medicine; PCP Dentist General Practice; Visit Provider Internal Medicine Cardiovascular Disease | DX: R94.31 Abnormal electrocardiogram [ECG] [EKG] (principal); R55 Syncope and collapse; R10.13 Epigastric pain | CPT/HCPCS: 93010 ==

== ENCOUNTER → 2025-02-14 01:23 | Outpatient (BNV) | payer MEDICAID, SELFPAY | PROVIDERS: Emergency Provider Emergency Medicine; PCP Dentist General Practice; Visit Provider Radiology Diagnostic Radiology | DX: R47.89 Other speech disturbances (principal); R55 Syncope and collapse; R53.1 Weakness | CPT/HCPCS: 70450; 70496; 70498 ==

== ENCOUNTER → 2025-02-14 05:17 | Outpatient (BNV) | payer MEDICAID, SELFPAY | PROVIDERS: Admitting Provider Internal Medicine; Emergency Provider Emergency Medicine; PCP Dentist General Practice; Visit Provider Internal Medicine | DX: N17.9 Acute kidney failure, unspecified (principal); R00.2 Palpitations | CPT/HCPCS: 99223 ==